=== PATIENT | male | born 1965 | race Caucasian/White ===

== ENCOUNTER 2018-07-25 13:29 | Inpatient (IN) | payer OTHER ==
[~2018-07-25] VITALS: Ht 175.3 cm; Wt 60.5 kg
[~2018-07-25 13:29] MED LIST: CEPH500 PO; HYDACE5 PO; SULTRIDS PO
[2018-07-25] MEDS ORDERED: ALBU90OI61 INH (14:00)
[2018-07-25 14:15] LABS: BASOPHILS ABSOLUTE AUTO 0.04 K/mm3 (0.00-0.23); BASOPHILS PERCENT AUTO 1 % (0-2); EOSINOPHILS ABSOLUTE AUTO 0.01 K/mm3 (0.00-0.68); EOSINOPHILS PERCENT AUTO 0 % (0-6); Hematocrit 48.3 % (37.0-53.0); Hemoglobin 16.5 g/dL (13.5-17.5); IMMATURE GRAN ABSOLUTE AUTO 0.02 K/mm3 (0.00-0.10); IMMATURE GRAN PERCENT AUTO 0 % (0-1); LYMPHOCYTES ABSOLUTE AUTO 0.98 K/mm3 (0.84-5.20); LYMPHOCYTES PERCENT AUTO 13 % (21-46); MONOCYTES ABSOLUTE AUTO 0.69 K/mm3 (0.16-1.47); MONOCYTES PERCENT AUTO 9 % (4-13); Mean Corpuscular HGB 30.4 pg (26.0-34.0); Mean Corpuscular HGB Conc 34.2 g/dL (31.5-36.5); Mean Corpuscular Volume 89 fL (80-100); NEUTROPHILS PERCENT AUTO 77 % (41-73); Platelet Count 188 K/mm3 (150-400); RDW Coefficient Variation 12.6 % (11.7-14.2); RDW Standard Deviation 41.6 fL (35.1-46.3); Red Blood Cell Count 5.43 M/mm3 (4.30-5.90); White Blood Cell Count 7.64 K/mm3 (4.00-11.30)
[2018-07-25 14:32] LABS: Alanine Aminotransfer (ALT/SGP 19 U/L (12-78); Albumin, Blood 3.8 g/dL (3.4-5.0); Alk Phos 64 U/L (50-136); Anion Gap 7 mmol/L (6-16); Aspartate Aminotrans (AST/SGOT 24 U/L (12-37); Bilirubin, Total 0.5 mg/dL (0.1-1.0); Blood Urea Nitrogen 10 mg/dL (8-24); Bun/Creatinine Ratio 10.8 (12.0-20.0); CO2, Blood 26 mmol/L (21-32); Calcium, Blood 8.7 mg/dL (8.5-10.1); Chloride, Blood 104 mmol/L (98-108); Creatinine, Blood 0.93 mg/dL (0.60-1.20); Globulin, Blood 3.7 g/dL (2.2-4.0); Glomerular Filtration Rate >60 (60-); Glucose, Blood 96 mg/dL (70-99); Potassium, Blood 3.7 mmol/L (3.5-5.5); Sodium, Blood 137 mmol/L (136-145); Total Protein, Blood 7.5 g/dL (6.4-8.2)
[2018-07-25 17:27] LABS: Magnesium, Blood 1.9 mg/dL (1.6-2.4)
[2018-07-25 17:28] LABS: Thyroid Stimulating Hormone 1.56 uIU/mL (0.360-4.800)
[2018-07-25 17:54] LABS: Influenza A Positive (NEGATIVE); Influenza B Negative (NEGATIVE)
--- NOTE | 2018-07-25 18:41 | NUR ---
SHIFT SUMMARY PT AXO, PLEASANT AND COOPERATIVE WITH CARE. PT ARRIVED TO ROOM AT 1715. ADMISSION COMPLETE. FLUIDS INFUSING PER EMAR. THOUGH WHEN NURSE USED TWO IDENTIFIERS FOR MED ADMINISTRATION AND USED SCANNER, THE EMAR GAVE AN ERROR MESSAGE STATING THAT THE "IDENTIFICATION NOT REQUIRED." NEW PT BAND PRINTED AND CHARGE NURSE NOTIFIED. PT HAS A TEMPERATURE OF 100.3 THOUGH PER PERAMETERS SET ON EMAR CANNOT BE GIVEN TYLENOL. BED IN LOW POSITION, CALL LIGHT WITHIN REACH. PT ORIENTED TO ROOM AND ENCOURAGED TO CALL PRIOR TO AMBULATION. PT EDUCATED ON FALL PREVENTION. PT ALSO HAS A VERY LARGE CYST ON MIDDLE BACK. PT STATES HE HAS HAD IT REMOVED MULTIPLE TIMES AND "IT KEEPS COMING BACK"
--- NOTE | 2018-07-26 05:02 | NUR ---
SHIFT SUMMARY NO CHANGES THIS SHIFT. PT HAS BEEN AWAKE FOR MOST OF THE NIGHT, BUT HAS DENIED NEEDS OR PAIN. INDEPENDENT IN THE ROOM. PT A/OX4, AND PLESANT. PT HAS A MILD TEMP BUT NOT HIGH ENOUGH TO REQUIRE TYLENOL PER PARAMETERS SET. SEE EMAR. NS INFUSING AT 150ML/HR. TELE IN PLACE WITH NSR. UNEVENTFUL NIGHT. WILL CONTINUE TO MONITOR AND REPORT TO ONCOMING RN.
[2018-07-26 05:09] LABS: Hematocrit 40.6 % (37.0-53.0); Hemoglobin 13.8 g/dL (13.5-17.5); Mean Corpuscular HGB 29.8 pg (26.0-34.0); Mean Corpuscular Volume 88 fL (80-100); Mean Platelet Volume 11.3 fL (9.1-12.4); Platelet Count 170 K/mm3 (150-400); RDW Coefficient Variation 12.8 % (11.7-14.2); RDW Standard Deviation 41.1 fL (35.1-46.3); Red Blood Cell Count 4.63 M/mm3 (4.30-5.90); White Blood Cell Count 4.11 K/mm3 (4.00-11.30)
[2018-07-26 05:33] LABS: BAND PERCENT MAN 10 % (0-8); BASOPHILS PERCENT MAN 0 % (0-2); EOSINOPHILS PERCENT MAN 0 % (0-6); LYMPHOCYTES ABSOLUTE MAN 0.45 K/mm3 (0.84-5.20); LYMPHOCYTES PERCENT MAN 11 % (21-46); MONOCYTES ABSOLUTE MAN 0.45 K/mm3 (0.16-1.47); MONOCYTES PERCENT MAN 11 % (4-13); SEG NEUTROPHILS PERCENT MAN 68 % (41-73); TOTAL CELLS COUNTED 100
[2018-07-26 05:39] LABS: Alanine Aminotransfer (ALT/SGP 16 U/L (12-78); Albumin, Blood 3.1 g/dL (3.4-5.0); Albumin/Globulin Ratio 0.9 (0.8-1.8); Alk Phos 50 U/L (50-136); Anion Gap 8 mmol/L (6-16); Aspartate Aminotrans (AST/SGOT 17 U/L (12-37); Bilirubin, Total 0.2 mg/dL (0.1-1.0); Blood Urea Nitrogen 10 mg/dL (8-24); Bun/Creatinine Ratio 13.1 (12.0-20.0); CO2, Blood 25 mmol/L (21-32); Chloride, Blood 108 mmol/L (98-108); Creatinine, Blood 0.77 mg/dL (0.60-1.20); Globulin, Blood 3.3 g/dL (2.2-4.0); Glomerular Filtration Rate >60 (60-); Glucose, Blood 116 mg/dL (70-99); Magnesium, Blood 2.1 mg/dL (1.6-2.4); Phosphorus, Blood 2.7 mg/dL (2.5-4.9); Potassium, Blood 3.9 mmol/L (3.5-5.5); Sodium, Blood 141 mmol/L (136-145); Total Protein, Blood 6.4 g/dL (6.4-8.2)
[2018-07-26 07:24] LABS: Adenovirus Not Detected (NOT DETECT); Coronavirus 229E Not Detected (NOT DETECT); Coronavirus HKU1 Not Detected (NOT DETECT); Coronavirus NL63 Not Detected (NOT DETECT); Coronavirus OC43 Not Detected (NOT DETECT); Human Metapneumovirus Not Detected (NOT DETECT); Human Rhinovirus/Enterovirus Not Detected (NOT DETECT)
[2018-07-26 07:25] LABS: Bordetella pertussis Not Detected (NOT DETECT); Chlamydophila pneumoniae Not Detected (NOT DETECT); Influenza A Detected (NOT DETECT); Influenza A/2009-H1 Detected (NOT DETECT); Influenza A/H1 Not Detected (NOT DETECT); Influenza A/H3 Not Detected (NOT DETECT); Influenza B Not Detected (NOT DETECT); Mycoplasma pneumoniae Not Detected (NOT DETECT); Parainfluenza Virus 1 Not Detected (NOT DETECT); Parainfluenza Virus 2 Not Detected (NOT DETECT); Parainfluenza Virus 3 Not Detected (NOT DETECT); Parainfluenza Virus 4 Not Detected (NOT DETECT); Respiratory Syncytial Virus Not Detected (NOT DETECT)
[2018-07-26 08:14] LABS: Source, Urine Clean Catch
[2018-07-26 08:22] LABS: Bilirubin, Urine Neg (Neg); Blood, Urine Neg (Neg); Glucose Qualitative, Urine Neg (Neg); Ketones, Urine Neg (Neg); Leukocyte Esterase, Urine Neg (Neg); Nitrite, Urine Neg (Neg); Protein, Urine Neg (Neg); Urobilinogen, Urine NORM (Normal)
[2018-07-26 08:44] LABS: Appearance, Urine Clear (Clear); Color, Urine Yellow (P-Yellow)
[2018-07-26 10:01] LABS: Adenovirus F 40/41 Not Detected (NOT DETECT); Astrovirus Not Detected (NOT DETECT); Campylobacter Sp Not Detected (NOT DETECT); Cryptosporidium Not Detected (NOT DETECT); Cyclospora Cayetanensis Not Detected (NOT DETECT); E. Coli O157 Not Detected (NOT DETECT); Entamoeba Histolytica Not Detected (NOT DETECT); Enteroaggregative E. coli-EAEC Not Detected (NOT DETECT); Enteropathogenic E. coli-EPEC Not Detected (NOT DETECT); Enterotoxigenic E. coli-ETEC Not Detected (NOT DETECT); Giardia Lamblia Not Detected (NOT DETECT); Norovirus GI/GII Not Detected (NOT DETECT); Plesiomonas Shigelloides Not Detected (NOT DETECT); Rotavirus A Not Detected (NOT DETECT); Salmonella Sp Not Detected (NOT DETECT); Sapovirus Not Detected (NOT DETECT); Shiga Toxin-prod E. coli-STEC Not Detected (NOT DETECT); Shigella/Enteroin E. coli-EIEC Not Detected (NOT DETECT); Vibrio Cholerae Not Detected (NOT DETECT); Vibrio Sp Not Detected (NOT DETECT); Yersinia Enterocolitica Not Detected (NOT DETECT)
--- NOTE | 2018-07-26 16:54 | NUR ---
Edil was open to conversation and encouragement. Per admit trigger, I met with his regarding an Advanced Directive. He was minimally interested, but took the information. He tells me he is rarely sick and his mom knows what he wants if anything were to happen. I will remain available.
--- NOTE | 2018-07-26 17:05 | NUR ---
SHIFT SUMMARY PT A&OX4. CALM AND COOPERATIVE WITH CARE, ANXIOUS AT TIMES. PT RESTING IN BED DURING SHIFT. UP TO BATHROOM AND IN ROOM IND. PT DENIES SOB, LS DIM T/O, SPO2 >90% ON RA. PT DENIES PAIN AND N/V DURING SHIFT. PT STARTED ON TAMIFLU DURING SHIFT. PT RECEIVING ANTIBIOTICS. URINE AND STOOL SPECIMENS COLLECTED AND SENT TO LAB. PT EDUCATED ON ISOLATION AND WEARING A MASK OUTSIDE OF THE ROOM. LOW GRADE TEMP NOTED, OTHER VSS. NO OTHER ACUTE CHANGES NOTED DURING SHIFT. WILL CONTINUE TO MONITOR UNTIL REPORT GIVEN TO ONCOMING RN.
[2018-07-27 05:10] LABS: BASOPHILS PERCENT AUTO 0 % (0-2); EOSINOPHILS PERCENT AUTO 0 % (0-6); Hematocrit 41.9 % (37.0-53.0); Hemoglobin 13.9 g/dL (13.5-17.5); IMMATURE GRAN ABSOLUTE AUTO 0.03 K/mm3 (0.00-0.10); IMMATURE GRAN PERCENT AUTO 1 % (0-1); LYMPHOCYTES ABSOLUTE AUTO 0.78 K/mm3 (0.84-5.20); LYMPHOCYTES PERCENT AUTO 13 % (21-46); MONOCYTES ABSOLUTE AUTO 0.43 K/mm3 (0.16-1.47); MONOCYTES PERCENT AUTO 7 % (4-13); Mean Corpuscular HGB 30.3 pg (26.0-34.0); Mean Corpuscular HGB Conc 33.2 g/dL (31.5-36.5); NEUTROPHILS ABSOLUTE AUTO 4.76 K/mm3 (1.96-9.15); NEUTROPHILS PERCENT AUTO 79 % (41-73); Platelet Count 175 K/mm3 (150-400); RDW Coefficient Variation 12.9 % (11.7-14.2); RDW Standard Deviation 43.2 fL (35.1-46.3); Red Blood Cell Count 4.59 M/mm3 (4.30-5.90)
[2018-07-27 05:11] LABS: Mean Corpuscular Volume 91 fL (80-100)
--- NOTE | 2018-07-27 05:29 | NUR ---
SHIFT SUMMARY PT MAY DC TOMORROW. DX: LLL PNEUMONIA, INFLUENZA. PT IS ON DROPLET/CONTACT PRECAUTIONS. PT IS INDEPENDENT IN ROOM, A&O X4, AND ON RA. 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 PT IS MONITORED BY CONTINUOUS PULSE OX. PT HAS A LARGE CYST ON HIS BACK TO BE MANAGED AN OUTPATIENT. HE HAS A HX OF COPD, IV DRUGS, MARIJUANA USE. HE IS A CURRENT SMOKER. PT RECEIVING IV ANTIBIOTICS AND IV FLUIDS.
--- NOTE | 2018-07-27 08:44 | NUR ---
Pt gave permission for me to access his chart and provide care.
[2018-07-27] MEDS ORDERED: ACET325 PO (13:51)
[2018-07-27] MEDS ORDERED: BENZ100A PO (13:53)
[2018-07-27] MEDS ORDERED: CEPH500 PO (13:54)
[2018-07-27] MEDS ORDERED: Q-Tussin100 MG/5 M PO (13:56)
[2018-07-27] MEDS ORDERED: FAMO20 PO (13:57)
[2018-07-27] MEDS ORDERED: LOPE2C PO (13:58)
[2018-07-27] MEDS ORDERED: Hair, Skin & N1 EACH PO (13:58)
[2018-07-27] MEDS ORDERED: FOLI1 PO (13:58)
[2018-07-27] MEDS ORDERED: Prednisone50 MG PO (14:05)
[2018-07-27] MEDS ORDERED: NICO21TP TOP (14:06)
[2018-07-27] MEDS ORDERED: ONDA4ODT MM (14:06)
[2018-07-27] MEDS ORDERED: AZIT500 PO (14:07)
[2018-07-27] MEDS ORDERED: OSEL75CA PO (14:07)
[2018-07-27] MEDS ORDERED: SACC250C PO (14:08)
[2018-07-27] MEDS ORDERED: Thiamine HCl100 MG PO (14:08)
--- NOTE | 2018-07-27 14:43 | NUR ---
1345 IV REMOVED PRIOR TO DISCHARGE. NO SS OF INFECTION NOTED. PATIENT TOLERATED WELL. 1425 NURSE WENT OVER DC PAPERS WITH PATIENT. MEDS FAXED TO PHARMACY OF CHOICE. NEW MEDS DISCUSSED WITH PATIENT AND PT EDUCATED REGARDING ADMINISTRATION AND COMPLETION OF THE. PATIENT REFUSED WC STATING HE COULD WALK TO TRUCK.
== END 2018-07-27 14:34 | disposition home or self-care (01) | DRG 871 ==
LOC: ER 13:29 → MEDS 16:57
PROVIDERS: Physician Assistant; ADMIT Family Medicine
DX: A41.89 Other specified sepsis (principal); J10.00 Influenza due to other identified influenza virus with unspecified type of pneumonia; J96.21 Acute and chronic respiratory failure with hypoxia; J44.1 Chronic obstructive pulmonary disease with (acute) exacerbation; R65.20 Severe sepsis without septic shock; F10.10 Alcohol abuse, uncomplicated; R19.7 Diarrhea, unspecified; F17.210 Nicotine dependence, cigarettes, uncomplicated; Z88.8 Allergy status to other drugs, medicaments and biological substances
CPT/HCPCS: 36415; 71046; 80053; 81003; 83605; 83690; 83735; 84100; 84145; 84443; 84484; 85025; 87086; 87486; 87507; 87581; 87633; 87798; 87804; 93005; 93010; 94640; 94644; 94762; 96365; 96367; 96375; 99285-25; J0456; J0696; J1650; J2930; J7030; J7050